=== PATIENT | female | born 1945 | race Caucasian/White ===

== ENCOUNTER 2023-04-19 11:38 | Day surgery (SDC) | payer MEDICARE, BC ==
[2023-04-19] VITALS (13 sets, daily range): BP systolic 108–161; BP diastolic 48–74; PULSE 61–80; RESP 12–15; TEMP 97.8; O2SAT 63–100
[~2023-04-19] VITALS: Ht 162.6 cm; Wt 75.7 kg
[2023-04-19] MEDS ORDERED: APIX5TAB3 PO (12:17)
[2023-04-19] MEDS ORDERED: CARV6.253 PO (12:17)
[2023-04-19] MEDS ORDERED: HYDR12.55 PO (12:17)
[2023-04-19] MEDS ORDERED: ATOR40TA72 PO (12:17)
[2023-04-19] MEDS ORDERED: IRBE150T24 PO (12:17)
[2023-04-19] MEDS ORDERED: FURO20TA4 PO (12:17)
[2023-04-19] MEDS ORDERED: fentaNYL/PF 50MCG/1 ML 2ML syringe IV ONE (12:35)
[2023-04-19] MEDS ORDERED: normal saline 1000ml 1,000 ML IV SCH (12:35)
[2023-04-19] MEDS ORDERED: MIDAZolam 1mg/ml 10ml vial IV ONE (12:35)
== END 2023-04-19 15:45 | disposition home or self-care (01) ==
LOC: SSTAY O 11:38
PROVIDERS: ATTEND Student in an Organized Health Care Education/Training Program
DX: I48.92 Unspecified atrial flutter (principal); I25.10 Atherosclerotic heart disease of native coronary artery without angina pectoris; I48.91 Unspecified atrial fibrillation; E11.9 Type 2 diabetes mellitus without complications; Z95.0 Presence of cardiac pacemaker; Z79.899 Other long term (current) drug therapy; Z88.8 Allergy status to other drugs, medicaments and biological substances
CPT/HCPCS: 92960; 93005; J2250; J3010; J7030; A4620